=== PATIENT | male | born 1985 | race Caucasian/White ===

== ENCOUNTER 2017-04-20 06:47 | Emergency (ER) | payer SELFPAY ==
[~2017-04-20] VITALS: Ht 172.7 cm; Wt 81.6 kg
[2017-04-20 07:01] VITALS: BP 164/83
== END 2017-04-20 09:38 | disposition left against medical advice (07) ==
LOC: EDBD 06:47 → ER 06:47
DX: R19.7 Diarrhea, unspecified (principal); Z53.21 Procedure and treatment not carried out due to patient leaving prior to being seen by health care provider